=== PATIENT | male | born 1950 | race Caucasian/White ===

== ENCOUNTER 2022-07-03 13:45 | Emergency (ER) | payer MEDICARE, MEDICAID ==
[~2022-07-03] VITALS: Ht 152.4 cm; Wt 78.0 kg
[2022-07-03] MEDS ORDERED: SODIUM CHLORIDE 0.9% 1,000 ML IV ONE (14:15)
[2022-07-03] MEDS ORDERED: ASPIRIN 81MG TABLET PO ONE (14:15)
[2022-07-03 15:16] LABS: BASOPHILS % 0.5 % (0.0-2.0); EOSINOPHILS % 0.4 % (0.0-5.0); HEMATOCRIT. 40.7 % (42.0-52.0); HEMOGLOBIN. 13.6 g/dL (14.0-18.0); LYMPHOCYTES % 11.6 % (20.0-50.0); MEAN CORPUSCULAR VOLUME 87.1 fL (80.0-94.0); MEAN PLATELET VOLUME 9.3 fl (7.4-10.4); MONOCYTES % 5.8 % (2.0-8.0); NEUTROPHILS % 81.7 % (40.0-76.0); PLATELET 181 x1000/uL (130-400); RED BLOOD CELL COUNT 4.67 mill/uL (4.7-6.1); RED CELL DISTRIBUTION WIDTH 14.5 % (11.6-14.6)
[2022-07-03 15:21] LABS: CHLORIDE 113 mEq/L (98-107)
[2022-07-03 16:41] VITALS: BP 146/76
== END 2022-07-03 16:59 | disposition home or self-care (01) ==
LOC: ER 13:45 → EDBEDREQ 14:14 → ER 16:59 → CANBEDREQ 07-04 11:26
DX: R55 Syncope and collapse (principal); S61.011A Laceration without foreign body of right thumb without damage to nail, initial encounter; I47.1 Supraventricular tachycardia; R03.0 Elevated blood-pressure reading, without diagnosis of hypertension; W01.110A Fall on same level from slipping, tripping and stumbling with subsequent striking against sharp glass, initial encounter; Y93.89 Activity, other specified; Y92.017 Garden or yard in single-family (private) house as the place of occurrence of the external cause
CPT/HCPCS: 36415; 71045; 73130; 80053; 82010; 82962; 83880; 84484; 85025; 93005; 96360; 99285; J7030